=== PATIENT | male | born 1960 | race Caucasian/White ===

== ENCOUNTER 2019-08-21 09:31 | Inpatient (IN) | payer OTHER ==
[~2019-08-21] VITALS: Ht 152.4 cm; Wt 70.8 kg
--- NOTE | ~2019-08-21 | O ---
[facility] [place] [address] OPERATIVE REPORT Name: DICKINSONASHLEY Room #: 464-P [facility] ..#: [id number] Admission: 08/21/19 Attend Phys: Khai Malone MD Discharge: 08/28/19 Date of : 58 Report #: [id number] THIS REPORT FOR: //name// CC: Jase Malone Josee Renae DATE OF SERVICE: 08/23/2019 PREOPERATIVE DIAGNOSES: 1. Cerebrovascular accident. 2. Malnutrition. 3. Sacral decubitus ulcer. 4. Left heel ulcer. POSTOPERATIVE DIAGNOSES: 1. Cerebrovascular accident. 2. Malnutrition. 3. Sacral decubitus ulcer. 4. Left heel ulcer. OPERATIVE PROCEDURE DONE: 1. Laparoscopic colostomy placement. 2. Percutaneous endoscopic gastrostomy tube placement. 3. Excisional debridement of large sacral decubitus ulcer, stage 4. Ulcer measuring 12 x 15 cm. OPERATING SURGEON: Christian Vincent MD INDICATIONS FOR THE PROCEDURE: The patient is a 59-year-old male who has a history of cerebrovascular accident, has malnutrition and a large sacral decubitus ulcer and a small left heel ulcer. The patient was advised laparoscopic colostomy placement, PEG tube placement, debridement of the sacral decubitus ulcer and also the foot ulcer. The patient showed understanding and agreed to proceed. DESCRIPTION OF PROCEDURE: After explaining to the patient in detail and informed consent was obtained, the patient was identified in the preoperative holding area. The patient was transferred to the operating room and was placed in supine position. Subsequent sterile compressive devices were placed for DVT prophylaxis. Preoperative antibiotics were given. After induction of anesthesia, the abdomen was prepped and draped in a sterile fashion. Through a right upper quadrant 1 cm incision and using Optiview technique, peritoneal cavity was entered and pneumoperitoneum was created, so thereafter under direct vision, another 5 mm trocar was placed in the right lower quadrant and another 5 mm trocar was placed in the right paraumbilical region. The sigmoid colon was [address] [address] OPERATIVE REPORT Name: ASHLEY DICKINSON Room #: 464-P [facility]#: [id number] Admission: 08/21/19 Attend Phys: Khai Malone MD Discharge: 08/28/19 Date of : 58 Report #: [id number] identified, was looped upwards to the left flank region. An elliptical skin incision was made. The fascia was opened and the peritoneal cavity was entered through this incision site and the sigmoid colon was brought up and the colostomy was then created by opening the colon and placing 3-0 Vicryl interrupted sutures circumferentially at 1 cm intervals. Absolute hemostasis was ensured. I then proceeded with a PEG tube placement endoscopically and upper GI endoscopy was performed. The scope was introduced into the esophagus. The abdomen was deflated. After insufflation of the stomach, an introducer needle was then placed in the epigastric region and after the point of the indentation and transillumination, was observed endoscopically. Through the needle, the snare was introduced and this was pulled endoscopically at the mouth. This was connected on to the PEG tube and was then pulled through. I followed the PEG tube endoscopically. The PEG was then placed in position. The tube was divided distally and all the attachments were placed. The tubing was flushed. The PEG tube was then anchored in position using 2-0 nylon sutures. I then repositioned the patient in the left lateral position for debridement of the sacral decubitus ulcer. There also was noted to be a large 12 x 15 cm decubitus ulcer, which was stage 4. There was necrotic tissue that was seen in the periphery and on the floor of the ulcer. This was all excised using a #15 surgical blade and using scissors. Excisional debridement was done up to the fascia, thorough saline irrigation was given. The wound was then packed with a wet to dry gauze, dressing was placed. There was a small ulcer on the left heel as well, which was also debrided. Dressing was placed. The patient was stable at the end of the procedure. The patient was awoken from anesthesia and was transferred to the recovery room in stable condition. ESTIMATED BLOOD LOSS: Minimal. CONDITION OF THE PATIENT: Stable. FLUIDS GIVEN: Per anesthesia notes. SPECIMEN SENT: None. COMPLICATIONS: None. ANESTHESIA: General anesthesia. By: 53 [id number] Christian Vincent MD /nt
[2019-08-21 11:15] VITALS: BP 96/44
[2019-08-21 14:58] LABS: HEMATOCRIT 30.8 % (42.0-52.0); HEMOGLOBIN 9.7 gm/dL (14.0-18.0); MCH 24.7 pg (26.0-34.0); MCHC 31.3 g/dL (28.0-37.0); RBC 3.9 mil/uL (4.50-6.00); RDW 18.6 % (10.5-14.5); WBC 13.9 thou/uL (4.0-11.0)
[2019-08-21 15:08] LABS: CALCIUM 9.2 mg/dL (8.5-10.1); CREATININE 0.5 mg/dL (0.7-1.3); POTASSIUM 4.1 mmol/L (3.5-5.1)
[2019-08-21 15:14] LABS: ALBUMIN 1.8 g/dL (3.4-5.0); TOTAL BILIRUBIN 0.2 mg/dL (<0.1-1.0); TOTAL PROTEIN 7.2 g/dL (6.4-8.2)
[2019-08-21 15:19] LABS: ALBUMIN 1.8 g/dL (3.4-5.0)
[2019-08-21 15:45] LABS: URINE BILIRUBIN NEGATIVE (Negative); URINE BLOOD 2+ (Negative); URINE CLARITY CLOUDY; URINE COLOR YELLOW; URINE GLUCOSE-RANDOM* NEGATIVE (Negative); URINE KETONES NEGATIVE (Negative); URINE LEUKOCYTES 3+ (Negative); URINE NITRITE POSITIVE (Negative); URINE PROTEIN (DIPSTICK) TRACE (Negative); URINE SPECIFIC GRAVITY >= 1.030 (1.005-1.035)
[2019-08-21 15:58] LABS: BACTERIA None Seen /HPF (None Seen); CASTS None Seen /LPF (None Seen); CRYSTALS None Seen /LPF (None Seen); SQUAMOUS 0-3 Few /LPF (0-3); URINE RBC 3-10 Few /HPF (0-2); URINE WBC >25 Many /HPF (0-5)
[2019-08-21 15:59] LABS: WBC CLUMPS Few (None Seen); YEAST Present (None Seen)
--- NOTE | 2019-08-21 18:55 | NUR ---
Patient admitted at approximately 1200 from [facility]. Patient is from [facility]. His , Seema is DPOA; she lives at their home. 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 Edema noted in left upper extremity. Patient states "I have blood clots in this arm." IV placed in right upper arm per IV Team. Patient has an indwelling catheter due to incontinence. He has a sacral wound, a wound on his left heel and one on his back. [facility] Wound Care Team took pictures of these wounds; they are in his chart. Patient has an MRI scheduled for tomorrow. He refused to sign for this, stating "I just had one a few days ago!" Vital signs have been stable. Will report to on-coming RN.
[2019-08-21 20:35] VITALS: BP 97/36
[2019-08-21] MEDS ORDERED: ACETAMINOPHEN500 M1 PO (21:14)
[2019-08-21] MEDS ORDERED: VITAMIN C250 MG PO (21:15)
[2019-08-21] MEDS ORDERED: LIPITOR40 MG PO (21:15)
[2019-08-21] MEDS ORDERED: ASA81BEC PO (21:15)
[2019-08-21] MEDS ORDERED: DOCUPRENE100 MG PO (21:16)
[2019-08-21] MEDS ORDERED: BACLOFEN20 MG PO (21:16)
[2019-08-21] MEDS ORDERED: IRON325 PO (21:17)
[2019-08-21] MEDS ORDERED: FLONASE 0.05%50 MCG NARES (21:18)
[2019-08-21] MEDS ORDERED: GABAPENTIN600 M1 PO (21:19)
[2019-08-21] MEDS ORDERED: LIDODERM1 EACH TRANSDERM (21:20)
[2019-08-21] MEDS ORDERED: METOCLOPRAMIDE10 MG PO (21:21)
[2019-08-21] MEDS ORDERED: METFORMIN HCL500 M3 PO (21:21)
[2019-08-21] MEDS ORDERED: MULTI VITAMIN1 EACH PO (21:22)
[2019-08-21] MEDS ORDERED: ZOFRAN 4 MG ORAL4 MG PO (21:23)
[2019-08-21] MEDS ORDERED: SERTRALINE HCL100 MG PO (21:23)
[2019-08-21] MEDS ORDERED: PROTONIX40 M2 PO (21:23)
[2019-08-21] MEDS ORDERED: TRAMADOL 50 MG50 MG PO (21:24)
[2019-08-21] MEDS ORDERED: VITAMIN B122500 MC1 PO (21:24)
[2019-08-21 23:58] VITALS: BP 118/45
--- NOTE | 2019-08-22 06:31 | NUR ---
ASSUMED CARE AROUND 191. AXOX3. RESTLESS AND CONSTANTNLY SEEKING STAFF FOR ATTENTION. HOME MEDS RECONCILED FROM MED LIST FROM [facility]. NO S/S ACUTE DISTRESS NOTED OR REPORTED AT THIS TIME. WILL CONT TO MONITOR FOR ANY CHANGES IN CONDITION.
[2019-08-22 09:12] VITALS: BP 99/66
[2019-08-22 10:46] LABS: HEMATOCRIT 28.1 % (42.0-52.0); HEMOGLOBIN 8.8 gm/dL (14.0-18.0); MCH 24.7 pg (26.0-34.0); MCHC 31.5 g/dL (28.0-37.0); MCV 78.5 fL (80.0-100.0); RBC 3.58 mil/uL (4.50-6.00); RDW 18.9 % (10.5-14.5); WBC 10.4 thou/uL (4.0-11.0)
[2019-08-22 10:59] LABS: CALCIUM 8.8 mg/dL (8.5-10.1); CREATININE 0.4 mg/dL (0.7-1.3); POTASSIUM 3.5 mmol/L (3.5-5.1)
--- NOTE | 2019-08-22 15:15 | NUR ---
PT ADMITTED RELATED TO OSTEOMYELITIS. PT IS LTC RESIDENT AT [facility] [place] [facility]. CM REVIEWED CHART AND SPOKE WITH CARE TEAM. CM MET WITH PT AT BEDSIDE THIS DAY. PT APPEARED TO BE A&O X4. CM ROLE INTRODUCED. PT INDICATED HE LIVES IN A HOUSE WITH HIS AND 2 DTRS WITH A RAMP TO ENTER AND NO STEPS INSIDE. PT INDICATED HE HAS A WC FOR HOME USE AND THAT HE IS NON AMBULATORY AND FAMILY ASSISTS WITH TRANSFERS. HE INDICATED HE HAD HH AND HCBS SERVICES FROM [facility] 4.75 HRS 5 DAYS A WEEK. CM CALLED PT'S /DPOA AND SHE INDICATED THAT PT RESIDES IN LTC UNDER HIS MEDICAID AT [facility] [place] AND THAT HE HAD BEEN THERE ABOUT A MONTH. SHE INDICATED THAT PLAN IS FOR PT TO RETURN TO [facility] [place] ONCE MEDICALLY STABLE. CLINICAL UPDATES SENT TO [facility] [place]. CM TO REQUEST COPY OF DPOA PAPERWORK FROM FACILITY. CM TO FOLLOW INDICATED WITH DC PLANNING. CARE TEAM ARE DISCUSSING I&D WITH POSSIBLE PEG AND COLOSTOMY.
--- NOTE | 2019-08-22 15:44 | NUR ---
DISCHARGE PLANNING. PATIENT IS A CUSTODIAL CARE RESIDENT AT [facility]. PLAN IS FOR PATIENT TO RETURN TO [facility] ONCE MEDICALLY READY. CLINICAL UPDATES FAXED. TO [facility] ADMISSIONS. FOLLOWING.
[2019-08-22 16:55] VITALS: BP 109/46
--- NOTE | 2019-08-22 18:30 | NUR ---
Assumed pt care at 7am.Pt in bed most of the time calling out at alltimes for one thing or another.Assessment completed.vss.Pt tolerated meds and diet. Medicated pt with tramadol and oxy for generalized pain with complete relief. Dr Fishman here and order noted.Pt will be going for surgery in am.Pt called and message left for her to call back for consent signature.Pt has been repositioned q2h for comfort.Will continue to monitor.
[2019-08-22 19:43] VITALS: BP 99/72
[2019-08-23 06:05] LABS: HEMATOCRIT 27.1 % (42.0-52.0); HEMOGLOBIN 8.5 gm/dL (14.0-18.0); MCH 24.9 pg (26.0-34.0); MCHC 31.4 g/dL (28.0-37.0); MCV 79.2 fL (80.0-100.0); RBC 3.43 mil/uL (4.50-6.00); RDW 18.6 % (10.5-14.5); WBC 9.9 thou/uL (4.0-11.0)
[2019-08-23 06:08] LABS: CALCIUM 8.6 mg/dL (8.5-10.1); CREATININE 0.4 mg/dL (0.7-1.3); POTASSIUM 3.5 mmol/L (3.5-5.1)
--- NOTE | 2019-08-23 08:37 | NUR ---
PROGRESS PT CALLING OUT FREQUENTLY TO HAVE FEET REPOSITIONED. GIVEN OXYCODONE BEFORE MIDNIGHT WITH EFFECT PT SLEPT AFTER. ANXIOUS ABOUT SURGERY. IV ANTIBIOTICS GIVEN ORDERED. SPOUSE CALLED AND GAVE TELEPHONE CONSENT FOR SURGERY. NPO AFTER MIDNIGHT ORAL SWABS PROVIDED FOR COMFORT CONTINUE TO MONITOR.
[2019-08-23 08:44] VITALS: BP 115/40
--- NOTE | 2019-08-23 17:26 | NUR ---
Assuemed pt care this am , was on NPO post midnight. Taken to the OR at 11 am and came back to the unit at 4:30 p.m. pt refused post of vitals, spouse was at the bedside. Pt woul complain of pain with the slightest touch in any part of his body. Was uinstucted to be NPO from now til lucy am, informed hospitalist to change PO medication to IV, awaiting change.
[2019-08-23 21:27] VITALS: BP 127/58
--- NOTE | 2019-08-24 01:37 | NUR ---
ASSUMED CARE OF PT AT 1900HRS. PT IS AOX4 WITH SOME FORGETFULNESS. FALL PRECAUTION IN PLACE. PT IS POST OP DAY 0 AND IS REFUSING POST OP VITALS. LAP SITE X2 NOTED WITH NEW COLOSTOMY BAG AND PEG TUBE. PT REPORTED SOME PAIN AND WAS TREATED WITH PRN PAIN MEDS. PT IS NPO AT THIS TIME. VSS AND NO S/S OF ACUTE DISTRESS. WILL CONTINUE TO MONITOR.
[2019-08-24 04:36] LABS: CALCIUM 8.1 mg/dL (8.5-10.1); CREATININE 0.3 mg/dL (0.7-1.3); POTASSIUM 4.1 mmol/L (3.5-5.1)
[2019-08-24 04:52] LABS: HEMOGLOBIN 8.4 gm/dL (14.0-18.0); MCH 24.8 pg (26.0-34.0); MCHC 31.1 g/dL (28.0-37.0); MCV 79.6 fL (80.0-100.0); RBC 3.39 mil/uL (4.50-6.00); RDW 18.8 % (10.5-14.5); WBC 14.1 thou/uL (4.0-11.0)
[2019-08-24 08:00] VITALS: BP 107/58
--- NOTE | 2019-08-24 10:45 | HC ---
[facility] [place] [address] CONSULTATION Name: TEENAASHLEY Room #: 464-P [facility].#: [id number] Admission: 08/21/19 Attend Phys: Khai Malone MD Discharge: Date of : 58 Report #: [id number] THIS REPORT FOR: //name// CC: Jase Malone Josee Batool DATE OF SERVICE: 08/22/2019 HISTORY OF PRESENT ILLNESS: This is a 59-year-old male patient with a history of cerebrovascular accident with left hemiparesis, type 2 diabetes mellitus and muscular dystrophy who was seen yesterday in the wound clinic. He had an infected sacral pressure ulceration as well as right heel pressure ulceration. At the time of his evaluation, it was felt that he would require surgical debridement and likely diverting colostomy and feeding tube. The patient states he is unclear as to how long the ulcer has been present. He has been living at [facility]. ALLERGIES: PENICILLIN and POTASSIUM CHLORIDE. PAST MEDICAL HISTORY: Positive for cerebrovascular accident, type 2 diabetes mellitus, malnutrition, muscular dystrophy, left hemiparesis and the ulcers as above. REVIEW OF SYSTEMS: Not obtainable due to the patient's condition at the time of evaluation. FAMILY HISTORY: Noncontributory. MEDICATIONS: Includes ferrous sulfate, oxycodone, ascorbic acid, aspirin, baclofen, cyanocobalamin, cetirizine, pantoprazole, vancomycin, fluticasone, gabapentin, metoclopramide, vancomycin. PHYSICAL EXAMINATION: VITAL SIGNS: Include temperature 36.7, pulse 73, respiratory rate 18, blood pressure 99/66. GENERAL: This is a chronically ill-appearing male patient who appears to be in minimal discomfort. HEENT: Head normocephalic. Nose and throat clear. NECK: Supple. LUNGS: Clear. ABDOMEN: Soft. Bowel sounds are present. EXTREMITIES: Pelvic region demonstrates a stage 4 sacral pressure ulceration. The external opening is much smaller than the underlying cavity and bone is palpable in the base with undermining 360 degrees around. There is some drainage and odor noted. [facility] [address] [place] [address] CONSULTATION Name: TEENAASHLEY Room #: 464-P [facility]#: [id number] Admission: 08/21/19 Attend Phys: Khai Malone MD Discharge: Date of : 58 Report #: [id number] EXTREMITIES: Demonstrate what appears to be a stage 3 pressure ulcer to the right heel, there is a little bit of slough present. Otherwise, there is pretty good granulation tissue and I do not appreciate any exposed bone at this time. NEUROLOGIC: The patient has left-sided weakness as well as generalized weakness. LABORATORY STUDIES: Sodium 140, potassium 3.5, chloride 102, CO2 32, BUN 11, creatinine 0.4, glucose 147. White blood cell count 10.4, the hemoglobin of 8.8. Albumin is 1.8. CLINICAL IMPRESSION: 1. Stage 4 sacral pressure ulceration, infected. 2. Presumed sacral osteomyelitis. The patient is refusing MRI. 3. Stage 3 pressure ulcer of the right heel. 4. Severe protein-calorie malnutrition. 5. Diabetes type 2. 6. Previous cerebrovascular accident. 7. Muscular dystrophy. RECOMMENDATIONS: At this point in time, we will recommend quarter strength Dakin's moist gauze to the sacrum and heel presently. He will need surgical debridement including bony debridement of the sacrum. We have recommended and I have discussed at length with both the patient and his the need for a feeding tube and diverting colostomy. I have confirmed with the wound care nurse at his facility that he has frequent fecal contamination of the wound bed. We will consult General Surgery, to the patient's who is also his DPOA and is agreeable to all of the surgical interventions and hopefully will be scheduled in the next day or so. He will need low air loss mattress with q. 2 hour turning and positioning ongoing aggressive nutritional support, especially when stable. Feeding tube in place. I appreciate being asked to see him in consultation. <ELECTRONICALLY SIGNED> By: Jase Putnam MD 08/24/19 1045 [id number] Jase Putnam MD /nt
[2019-08-24 15:02] VITALS: BP 97/58
--- NOTE | 2019-08-24 19:51 | NUR ---
Assumed pt care this am, back on a regular diet this am and is well tolerated. Pt is a feeder and very demanding. Refuses to do q2 turns was able to do one this pm. FC changed since this was leaking. Groin area on both sides and scrotum are very raw painful, pericare given placed z-guard. Wound dressing clean dry and intact, has not been opened by wound care or surgery. Colostomy draining light green fluid very scant in amount, PEG tube in place not being used awaiting orders. POC followed, endorsed to the night nurse, pt is very non compliant and uncooperative.
[2019-08-24 20:35] VITALS: BP 114/45
[2019-08-25 00:33] VITALS: BP 141/48
[2019-08-25 05:17] LABS: ABSOLUTE NEUTROPHILS 10.6 thou/uL (1.4-8.2); BASOPHILS 0.1 % (0.0-2.0); EOSINOPHILS 1.3 % (0.0-3.0); HEMATOCRIT 27.2 % (42.0-52.0); HEMOGLOBIN 8.6 gm/dL (14.0-18.0); LYMPHOCYTES 19.2 % (24.0-44.0); MCHC 31.5 g/dL (28.0-37.0); MCV 79.2 fL (80.0-100.0); MONOCYTES 6.2 % (1.0-8.0); PLATELET COUNT 402 thou/uL (150-400); POLYS 73.2 % (36.0-66.0); RBC 3.43 mil/uL (4.50-6.00); RDW 19.2 % (10.5-14.5); WBC 14.5 thou/uL (4.0-11.0)
[2019-08-25 05:23] VITALS: BP 91/48
[2019-08-25 05:37] LABS: CALCIUM 8.4 mg/dL (8.5-10.1); CREATININE 0.4 mg/dL (0.7-1.3); MAGNESIUM 1.1 mg/dL (1.8-2.4); PHOSPHORUS 2.8 mg/dL (2.5-4.9); POTASSIUM 3.7 mmol/L (3.5-5.1)
--- NOTE | 2019-08-25 05:52 | NUR ---
PATIENT AOX3 CONFUSED AND FORGETFUL.PATIENT HARD TO REDIERCT AT TIME. PATIENT HAS SURGICAL DRESSING ON THE SACRUM, AND LEFT HEEL IS C/D/I. PATIENT TURNED Q 2 HOURS PATIENT CAN TORELATE. PATIENT NON COMPLIANT WITH TURNING. PATIENT ENCOURAGED FLUIDS.PATIENT REFUSED INSULIN. PERICARE AND CATH CARE DONE NEEDED. CALL LIGHT AND PERSONAL ITEM WITHIN REACH. PAIN CONTROLLED THIS SHIFT. PATIENT IN BED ASLEEP AT THIS TIME BREATHING REGULAR AND UNLABOURED.
[2019-08-25 08:00] VITALS: BP 89/53
[2019-08-25 15:00] VITALS: BP 119/38
[2019-08-25 20:14] VITALS: BP 111/49
--- NOTE | 2019-08-25 20:22 | NUR ---
Assumed pt care this am, still needy and would call multiple times. Would refuse accu checks, q2 turns, wound dressing change and proper positioning for meals. Pt was able to feed himself with just meal prep, medications were givn late since pt wiuld refuse this on the onset. FC patent and draining dark yellow urine, hydrations encouraged.l POC followed but pt ius non compliant and would complain to the slightest touch. Endorsed to the night nurse.
--- NOTE | 2019-08-26 03:22 | NUR ---
Assumed pt care @1900. pt very restless and uncomfortable at the begining of the shift. pt required frequent repositioning of his legs which staff provided. pt recieved 2x doses of oxycodone and 1x dose of fentanyl and was able to go to sleep a little after midnight. pt requested left heel protector and pillow on right leg be taken off. dressing on heel clean dry and intact. pt is a q2 turn but has only allowed staff to turn him once so far as of this note. pt taking pills whole in pudding and tolerating it well. pt's had 1 and half cup of pudding so far overnight. peg tube in place and patent. nettles in place. v/s stable. no s/s of distress. will cont to monitor
[2019-08-26 08:47] VITALS: BP 125/74
--- NOTE | 2019-08-26 10:45 | NUR ---
OSTOMY CARE pouch edges loose, starting to leak, changed using 2 piece grace cut to fit appliance w/ adapt ring under wafer, stoma pink viable w/ small area brownish tissue left lateral edge, budded w/ soft brown stool noted, peristomal skin intact, cooperative, info and supplies at bs RECOMMENDATIONS cont w/ cut to fit 2 piece appliance w/ adapt ring under wafer, change q3-5 days, staff pharmacist aware
--- NOTE | 2019-08-26 11:56 | NUR ---
GEOSPATIAL INTELLIGENCE ANALYST INDICATED THAT THEY ARE TO INITIAT NOCTURNAL TUBE FEEDINGS THIS EVENING. WC HAD MENTIONED POSSIBLE VAC PLACEMENT TODAY WELL. CM FAXED CLINICAL UPDATE TO EDUARD AT [facility] AND INDICATED THE ABOVE AND THAT CARE TEAM INDICATED THAT PT MAY BE MEDICALLY STABLE TO RETURN TO [facility] SOON TOMORROW. CM TO FOLLOW INDICATED WITH DC PLANNING.
[2019-08-26 15:15] VITALS: BP 117/73
--- NOTE | 2019-08-26 16:47 | NUR ---
ASSUMED CARE AT SHIFT CHANGE, ALERT AND ORIENTED X4. MEDICATED FOR INDICATED. ASSESMENT CHARTED. S/B WOUND CARE AND WV PLACED TO SACRAL WOUND. PATIENT REFUSES TO Q2 POSITIONING, MD NOTIFIED. BG, VSS AND AFEBRILE. WILL CONTINUE WITH POC.
[2019-08-26 20:39] VITALS: BP 124/62
--- NOTE | 2019-08-27 04:35 | NUR ---
Assessments completed. pt very restless overnight. pt was very uncomfortable despite staff repositioning frequently. pain meds were given per emar. pt would called for his tv to be shot off after he turned in on by himself. pt has been very needy, requesting staff in his room for most of the night. ostomy pouch changed. pt refused heel compressions to be placed on. pt was able to fall asleep around 0400.
[2019-08-27 08:16] VITALS: BP 128/57; BP 158/57
--- NOTE | 2019-08-27 09:41 | NUR ---
Calorie count in progress-see day 1 results documentation. Pt has stated he does not want to use his PEG and would prefer to try and eat. CM determined facility does not carry Vital AF 1.2 formula. If pt calorie count results show inadequate oral intake, then would readdress use of PEG with pt and could use Glucerna 1.2 nocturnal or for bolus feeds.
--- NOTE | 2019-08-27 12:21 | NUR ---
Assumed pt care at 7am.Pt in bed sleeping on and off and very needy.He calls out at alltimes for attention.Assessment completed..vss.Pt refused tube feeding last noc and this morning.Wound vac to sacral wound intact and was connected to freeflow water this am .Dr Biggs here,order noted.Pt will be dc to to [facility] this afternoon. called and message left. Medicated pt with fentanyl ivp with relief.Will continue to monitor. to
--- NOTE | 2019-08-27 15:29 | NUR ---
PT HAD REFUSED INITIATION OF NOC TUBE FEEDING LAST NIGHT. WOUND VAC WAS PLACED. CM NOTIFIED [facility] THAT THEY WOULD NEED TO ORDER VAC. PHYSICAIN INDICATED THAT THEY WOULD TRY NOC TUBE FEEDINGS AGAIN THIS EVENING AND ANTICIPATE DISHCARGE BACK TO [facility] TOMORROW. CM NOTIFIED [facility] IN ADMISSIONS. PT IS AWARE. CM CALLED AND NOTIFIED PT'S SPOUSE AND SHE WAS GOING TO SPEAK WITH PT ABOUT COMPLYING WITH NOC TUBE FEEDING. CM TO FOLLOW INDICATED WITH DC PLANNING.
[2019-08-27 16:58] VITALS: BP 129/64
[2019-08-27 19:53] VITALS: BP 127/84
[2019-08-28 08:00] VITALS: BP 107/64
--- NOTE | 2019-08-28 08:06 | NUR ---
PROGRESS PT ALERT AND ORIENTED REQUESTING TO BE REPOSITIONED FREQUENTLY. PATTERSON CATHETER IN PLACE DRAINING YELLOW URINE, IV INTACT IVF'S AND ANTIBIOTICS INFUSING ORDERED. PT TAKING OXYCODONE AND FENTANYL FOR PAIN Q3 TO 4 HOURS. COLOSTOMY INTACT SOFT BROWN STOOL NOTED, PT PICKED AT BAG UNTIL STOOL LEAKED OUT AND WHOLE BAG CHANGED STOMA PINK MOIST SURROUNDING SKIN INTACT. CONTINUE POC.
--- NOTE | 2019-08-28 10:38 | NUR ---
Based on calorie count results (see RD calorie count documentation) would recommend pt receive 1 can glucerna 1.2 every HS, then bolus 1 can glucerna 1.2 if eats less than 50% of meal. Likely discharge today.
[2019-08-28] MEDS ORDERED: MELATONIN5 M1 PO (13:06)
[2019-08-28] MEDS ORDERED: TRIPHROCAPS SOFT1 MG PO (13:06)
[2019-08-28] MEDS ORDERED: MERREM500 MG IV (13:09)
[2019-08-28] MEDS ORDERED: NOVOLOG100 UNIT/1 SUBQ (13:22)
[2019-08-28] MEDS ORDERED: PERCOCET 10-321 EACH PO (13:29)
[2019-08-28] MEDS ORDERED: ZOSYN 3.3753.375 GM IV (13:49)
[2019-08-28] MEDS ORDERED: ROCEPHIN 11 GM/1001 IV (13:52)
--- NOTE | 2019-08-28 14:12 | NUR ---
CARE TEAM INDICATED THAT PT IS MEDICALLY STABLE TO DC TO [facility] THIS DAY. CHART COPY MADE. ORDERS FAXED. PT AND SPOUSE ARE AWARE AND AGREEABLE. [facility] TRANSPORT ARRANGED FOR 1430. REPORT TO BE CALLED TO . NO OTHER CM INTERVENTION INDICATED. CASE CLOSED.
--- NOTE | 2019-08-28 14:57 | NUR ---
Dc order received from Dr Malone.dc summary compile by case resolution specialist.printed and packed in envelope per protocol.Wound vac dc'd by wound care nurse.Dc picture taken before applying wet to dry drsg to sacrum wound.At 1445,pt dc with piv and personal belongings per ambulance to [facility].Attempt made twice to give report but no luck.Will call again to give report before the shift is over.
[2019-08-28] MEDS ORDERED: ZYVOX600 MG PO (21:26)
== END 2019-08-28 15:05 | DRG 570 ==
LOC: HYPER 09:31 → 4W 12:13 → HYPER 15:49 → 4W 08-28 15:05
PROVIDERS: Emergency Medicine Emergency Medical Services; Internal Medicine; ADMIT Hospitalist
PROC: 0DH63UZ Insertion of Feeding Device into Stomach, Percutaneous Approach (ICD-10-PCS; principal; 2019-08-23)
PROC: 0D1N4Z4 Bypass Sigmoid Colon to Cutaneous, Percutaneous Endoscopic Approach (ICD-10-PCS; principal; 2019-08-23)
PROC: 0JB70ZZ Excision of Back Subcutaneous Tissue and Fascia, Open Approach (ICD-10-PCS; principal; 2019-08-23)
DX: L89.154 Pressure ulcer of sacral region, stage 4 (principal); E43 Unspecified severe protein-calorie malnutrition; I69.354 Hemiplegia and hemiparesis following cerebral infarction affecting left non-dominant side; L89.613 Pressure ulcer of right heel, stage 3; K21.9 Gastro-esophageal reflux disease without esophagitis; F32.9 Major depressive disorder, single episode, unspecified; F41.9 Anxiety disorder, unspecified; G71.00 Muscular dystrophy, unspecified; D64.9 Anemia, unspecified; E11.9 Type 2 diabetes mellitus without complications; E78.5 Hyperlipidemia, unspecified; Z88.0 Allergy status to penicillin; Z88.8 Allergy status to other drugs, medicaments and biological substances; Z86.718 Personal history of other venous thrombosis and embolism; Z79.82 Long term (current) use of aspirin; Z79.899 Other long term (current) drug therapy
CPT/HCPCS: 10047; 50010; 50101; 50249; 50386; 50403; 50555; 52265; 53307; 54118; 56524; 56526; 56527; 57188; 62110; 62900; 70005

== ENCOUNTER → 2019-09-18 | Outpatient (CLI) | payer OTHER ==
[~2019-09-18] MED LIST: ACETAMINOPHEN500 M1 PO; ASA81BEC PO; BACLOFEN20 MG PO; DOCUPRENE100 MG PO; FLONASE 0.05%50 MCG NARES; GABAPENTIN600 M1 PO; IRON325 PO; LIDODERM1 EACH TRANSDERM; LIPITOR40 MG PO; MELATONIN5 M1 PO; MERREM500 MG IV; METFORMIN HCL500 M3 PO; METOCLOPRAMIDE10 MG PO; MULTI VITAMIN1 EACH PO; NOVOLOG100 UNIT/1 SUBQ; PERCOCET 10-321 EACH PO; PROTONIX40 M2 PO; ROCEPHIN 11 GM/1001 IV; SERTRALINE HCL100 MG PO; TRAMADOL 50 MG50 MG PO; TRIPHROCAPS SOFT1 MG PO; VITAMIN B122500 MC1 PO; VITAMIN C250 MG PO; ZOFRAN 4 MG ORAL4 MG PO; ZOSYN 3.3753.375 GM IV; ZYVOX600 MG PO
== END ==
LOC: HYPER 10:21
DX: E11.622 Type 2 diabetes mellitus with other skin ulcer (principal); L89.154 Pressure ulcer of sacral region, stage 4; L98.496 Non-pressure chronic ulcer of skin of other sites with bone involvement without evidence of necrosis; L89.106 Pressure-induced deep tissue damage of unspecified part of back; L98.428 Non-pressure chronic ulcer of back with other specified severity; E11.621 Type 2 diabetes mellitus with foot ulcer; L89.620 Pressure ulcer of left heel, unstageable; L97.421 Non-pressure chronic ulcer of left heel and midfoot limited to breakdown of skin; G81.90 Hemiplegia, unspecified affecting unspecified side; I63.9 Cerebral infarction, unspecified; I10 Essential (primary) hypertension; E78.5 Hyperlipidemia, unspecified; F41.9 Anxiety disorder, unspecified; F32.9 Major depressive disorder, single episode, unspecified; Z87.891 Personal history of nicotine dependence; Z79.01 Long term (current) use of anticoagulants; Z79.84 Long term (current) use of oral hypoglycemic drugs; Z79.82 Long term (current) use of aspirin

== ENCOUNTER → 2019-10-11 | Outpatient (CLI) | payer OTHER | LOC: CAT 10-04 11:40 | DX: I73.9 Peripheral vascular disease, unspecified (principal); I70.0 Atherosclerosis of aorta; I70.8 Atherosclerosis of other arteries; J98.11 Atelectasis; M47.815 Spondylosis without myelopathy or radiculopathy, thoracolumbar region; R60.0 Localized edema; K56.41 Fecal impaction ==

== ENCOUNTER → 2019-10-25 | Outpatient (CLI) | payer OTHER ==
[~2019-10-25] VITALS: Ht 177.8 cm; Wt 82.1 kg
[~2019-10-25] MED LIST changes: +TRAZODONE 150150 M1 PO
[2019-10-25 08:56] VITALS: BP 105/25
== END | disposition home or self-care (01) ==
LOC: CATH 08:53
DX: I70.248 Atherosclerosis of native arteries of left leg with ulceration of other part of lower leg (principal); I70.1 Atherosclerosis of renal artery; L97.929 Non-pressure chronic ulcer of unspecified part of left lower leg with unspecified severity; I10 Essential (primary) hypertension; E11.9 Type 2 diabetes mellitus without complications; E78.5 Hyperlipidemia, unspecified; I25.10 Atherosclerotic heart disease of native coronary artery without angina pectoris; F41.9 Anxiety disorder, unspecified; K21.9 Gastro-esophageal reflux disease without esophagitis; Z98.890 Other specified postprocedural states; Z79.899 Other long term (current) drug therapy; Z88.0 Allergy status to penicillin; Z88.8 Allergy status to other drugs, medicaments and biological substances; Z79.891 Long term (current) use of opiate analgesic; Z86.73 Personal history of transient ischemic attack (TIA), and cerebral infarction without residual deficits; Z86.718 Personal history of other venous thrombosis and embolism; Z79.01 Long term (current) use of anticoagulants